=== PATIENT | male | born 1970 | race Caucasian/White ===

== ENCOUNTER 2021-12-23 15:42 | Outpatient (CLI) | payer OTHER, SELFPAY ==
--- NOTE | ~2021-12-23 | XR_ITS ---
EXAMINATION: XR abdomen/kub 1V DATE: 12/23/2021 16:06 INDICATION: Nephrolithiasis. Right flank pain. TECHNIQUE: A supine view of the abdomen on 2 radiographs was obtained. COMPARISON: None. FINDINGS: There are no dilated loops of bowel. There is an 8 mm calcification overlying left kidney t hat is likely a stone. There are calcifications in the pelvis. IMPRESSION: 1. 8 mm left kidney stone. 2. Calcifications in the pelvis, which may be phleboliths. Distal ureteral stone cannot be excluded. Reviewed, dictated and finalized at location A. IMPRESSION: 1. 8 mm left kidney stone. 2. Calcifications in the pelvis, which may be phleboliths. Distal ureteral ston e cannot be excluded.
== END 2021-12-23 15:43 | disposition home or self-care (01) ==
PROVIDERS: PCP Emergency Medicine
DX: N20.0 Calculus of kidney (principal)
CPT/HCPCS: 74018

== ENCOUNTER 2022-04-11 14:57 | Outpatient (CLI) | payer OTHER, SELFPAY ==
--- NOTE | 2022-04-11 15:00 | ECG_ITS ---
Measurements Intervals [place] Rate: 71 P: 40 CO: 176 QRS: 35 QRSD: 104 T: 29 QT: 390 QTc: 426 Interpretive Statements SINUS RHYTHM NORMAL ECG NO PREVIOUS ECG AVAILABLE FOR COMPARISON Electronically Signed On 04-11-2022 18:29:22 CDT by Khadar Batista M.D.
[2022-04-11 15:56] LABS: Anion Gap 9 mmol/L (8-16); Blood Urea Nitrogen 22 mg/dL (9-20); Calcium 9.4 mg/dL (8.4-10.2); Carbon Dioxide 26 mmol/L (22-30); Chloride 102 mmol/L (98-107); Estimated Glomerular Filt Rate > 60; Glucose 123 mg/dL (65-110); Potassium 3.4 mmol/L (3.4-5.0); Sodium 137 mmol/L (137-145)
[2022-04-11 15:57] LABS: INR 1.1; Prothrombin Time 13.4 Seconds (11.1-14.7)
[2022-04-11 15:58] LABS: Partial Thromboplastin Time 29.2 SECONDS (22.3-36.8)
== END 2022-04-11 14:58 | disposition home or self-care (01) ==
LOC: ANHSURGERY 15:10
PROVIDERS: Anesthesiology; Visit Provider Urology
DX: Z01.818 Encounter for other preprocedural examination (principal); N20.0 Calculus of kidney; E11.9 Type 2 diabetes mellitus without complications
CPT/HCPCS: 36415; 80048; 85610; 85730; 87086; 93005

== ENCOUNTER 2022-04-14 01:25 | Day surgery (SDC) | payer OTHER, SELFPAY ==
[2022-04-10 12:46] VITALS: BMI 26.9
--- NOTE | 2022-04-10 12:58 | PC.NURSE ---
Report to the Outpatient Waiting Room, entrance under the green pavilion located off [facility], at time 6:00 on date 04/14/22. OR Time: 7:30. - You and your visitor will be asked to self-screen and do not enter if you have any COVID symptoms. - Only one visitor and NO children visitors are allowed at this time. - The patient visitor is requested to leave or wait in car when not with patient due to restrictions. - A mask is required within the hospital. Patients may have clear liquids (water, carbonated beverages, clear teas, apple juice) until 3 hours prior to surgery (4:30) with a maximum of 20 ounces. - No food from midnight until time of surgery Take the following medications with a SIP of water the morning of surgery: NONE Medications to discontinue per physician: N/A Date to take last dose: N/A Please no make-up, nail turkish, hairspray, perfume, deodorant, or body powder the day of surgery. No jewelry (including any body piercings) or valuables the day of surgery, leave them at home. Please take a shower or bath the night before, or the morning of, surgery with an antibacterial soap. Wear comfortable, loose fitting clothing. - Jewelry must be removed prior to entering the operating room. Rings and piercings that are not removed may be cut off. - The hospital will not accept responsibility for valuables. - Please leave all valuables, including medications, at home the day of surgery. If you are going home after surgery, a licensed deliver driver must drive you home. - NO public transportation without another adult. - We recommend that an adult stay with you for 24 hours following discharge. - We also recommend that you do not drive, make important decision, drink alcoholic beverages, or take any drugs that were not prescribed by your health care provider for at least 24 hours after your discharge time. Follow any additional instructions given to you from your surgeon. If you or anyone in your household have experienced Covid symptoms in the past week, please notify your surgeon or the nurse liaison at the phone number below for possible testing. Telephone instructions given to PT - JALEN MOYA and asked if any additional questions and then verbalized understanding. Patient advised to call surgeon office or pre surgery nurse liaison [phone] if any additional questions.
--- NOTE | 2022-04-13 14:47 | P.PNAN_ITS ---
Anes - Initial Pre Proc Eval Procedure: Operation Date: 04/14/22 07:30 Proposed Procedures p Left Renal Extracorporeal Shock Wave Lithotripsy - Henry Quan MD Date/Time: 04/13/22 14:47 Surgeon: Henry Quan MD Pre Op Diagnosis: left renal stone Patient Data Age: 51 Gender: M Height: 1.74 m Weight: 81.65 kg Allergies Allergy/AdvReac Type Severity Reaction Status Date / Time No Known Allergies Allergy Unverified 04/14/22 06:43 Home Medications Medication Instructions Recorded Confirmed Type atorvastatin 40 mg tablet 40 mg PO HS 04/10/22 04/14/22 History metformin 500 mg tablet,extended 1,000 mg PO HS 04/10/22 04/14/22 History release 24 hr Patient hx anesthesia problems: none Family hx anesthesia problems: none Results Review: All pre-operative results and documents have been reviewed as part of the pre- operative evaluation. [facility] Past Medical History Medical History (Updated 04/13/22 @ 14:49 by Andrew Liu MD) Anxiety Diabetes History of gout Hyperlipidemia FARIDA (obstructive sleep apnea) Osteoarthritis of right knee Subacromial impingement of right shoulder Family History Family History Grandparent Malignant neoplasm of prostate, Onset Age: 63 Cerebrovascular accident Mother Family history of migraine headaches Patient's mother is in good health Family history of allergic disorder Family history of coronary artery disease Family history of malignant neoplasm of breast in first degree relative, Onset Age: 60 Father Family history of diabetes mellitus in first degree relative Social History Social History Smoking packs per day: 1 Smoking cigarettes per day: 20.0 Years smoked: 20 Smoking pack-years: 20.00 Smoking status: Former smoker Tobacco type: cigarettes Smoking end date: 08/20/03 Alcohol intake: never Substance use: never Substance use type: does not use Living arrangements: with family Additional living arrangements comments: Daughter and . Additional occupation/education comments: [employer] Spiritual care concerns: No Anes - Eval Final PreProcedure Day of Procedure 04/13/22 14:47 Patient weight: overweight Heart: regular rate and rhythm Lungs: clear to auscultation and normal air movement Airway: Mallampati scale class II Neurological: alert and oriented Last oral intake: >/= 8 hours ASA classification: III Emergent: no Anesthetic plan: proceed Anesthesia type and monitoring: general LMA Results Review: All pre-operative results and documents have been reviewed as part of the pre- operative evaluation. Informed Consent: The patient's anesthetic plan and its attendant risks and benefits were discussed with the patient/family/POA. Questions were solicited and answers provided to the satisfaction of the patient/family/POA.
[2022-04-14] VITALS (7 sets, daily range): BP systolic 104–134; BP diastolic 60–91; PULSE 60–72; RESP 14–20; TEMP 36.3–36.5; O2SAT 96–100
--- NOTE | ~2022-04-14 | XR_ITS ---
EXAMINATION: XR abdomen/kub 1V DATE: 04/14/2022 06:11 INDICATION: Kidney stone. TECHNIQUE: A supine view of the abdomen on 3 radiographs was obtained. COMPARISON: Abdomen radiographs 12/23/2021 FINDINGS: There are no dilated loops of bowel. There is a moderate volume of stool in the colon. Calc ifications in the pelvis may be phleboliths. There is a 6 mm stone in left kidney. IMPRESSION: 1. 6 mm stone in left kidney. Reviewed, dictated and finalized at location A.
[2022-04-14] MEDS: LACTATED RINGERS 1,000 ML 30 ML IV CONT ×2 (06:38→08:07)
[2022-04-14 06:41] LABS: Glucose Point of Care 107 mg/dl (65-105)
--- NOTE | 2022-04-14 06:58 | WPDHPUPDATE1 ---
History and Physical Update Update Date/Time: 04/14/22 06:58 History and Physical has been reviewed, including an updated exam of the patient. There are NO changes in the patient's condition. Risks, benefits, and alternatives have been discussed and questions answered. Patient agrees to proceed with procedure.
[2022-04-14] MEDS: ceFAZolin 2 GM/D5W 50 ML 2 GM/50 ML BAG IVPB (07:25)
--- NOTE | 2022-04-14 07:51 | W.PM.PROC2 ---
Procedure Note - Detailed Date of Procedure 04/14/22 Pre-op Diagnosis Left renal stone Post-op Diagnosis Same Procedure Performed Left ESWL Surgeon Henry Quan MD Description of Procedure The patient was brought to the operative suite where he was placed in the supine position on the Dornier lithotripsy table. The focal point of the lithotripter was placed at a 8mm left mid-pole renal calculus. A total of 2500 shocks were delivered at a power setting of 4. There appeared to be good fragmentation of the stone. The patient tolerated the procedure well and was taken to the recovery room in good condition. Drains No Packing No Pathology None sent Complications No immediate complications Condition Stable
[2022-04-14 08:27] LABS: Glucose Point of Care 107 mg/dl (65-105)
[2022-04-14] MEDS: oxyCODONE HCL (*CRX) 5 MG TAB IR PO (08:55)
== END 2022-04-14 09:50 | disposition home or self-care (01) ==
PROVIDERS: Visit Provider Urology
PROC: (CPT 50590; principal; 2022-04-14 07:30)
DX: N20.0 Calculus of kidney (principal); F41.9 Anxiety disorder, unspecified; G47.33 Obstructive sleep apnea (adult) (pediatric); M19.90 Unspecified osteoarthritis, unspecified site; E78.5 Hyperlipidemia, unspecified; Z87.891 Personal history of nicotine dependence; Z79.84 Long term (current) use of oral hypoglycemic drugs
CPT/HCPCS: 50590; 36415; 74018; 80048; 82948; 85610; 85730; 87086; 93005; A9270; J0690; J1100; J2250; J2405; J2704; J3010; J7120

== ENCOUNTER 2022-04-28 13:27 | Outpatient (CLI) | payer OTHER, SELFPAY ==
--- NOTE | ~2022-04-28 | XR_ITS ---
EXAMINATION: XR abdomen/kub 1V DATE: 04/28/2022 13:50 INDICATION: Lithotripsy 2 weeks prior TECHNIQUE: A supine view of the abdomen on 2 radiographs was obtained. COMPARISON: 04/14/2022 FINDINGS: Interval advancement of a still for-5 lumbar stones/stone fragment previously at the left kidney now projecting over the left sacroiliac and the distal left ureter. Unchanged pattern of phleboliths in t he more caudal pelvis. No dilated loops of gas-filled bowel to suggest obstruction. Bones are unremar kable. IMPRESSION: 1. Advanced into a 4-5 mm stones/stone fragment now at the distal left ureter. Reviewed, dictated and finalized at location A.
== END 2022-04-28 13:28 | disposition home or self-care (01) ==
PROVIDERS: Visit Provider Urology
DX: N20.0 Calculus of kidney (principal); N20.1 Calculus of ureter
CPT/HCPCS: 74018

== ENCOUNTER 2022-07-19 14:44 | Outpatient (CLI) | payer OTHER, SELFPAY ==
--- NOTE | ~2022-07-19 | US_ITS ---
. EXAMINATION: US retroperitoneal comp DATE: 07/19/2022 16:17 INDICATION: Acute renal insufficiency. TECHNIQUE: Multiple ultrasound grayscale images of the kidneys were obtained. COMPARISON: Ultrasound kidneys 09/14/2010 FINDINGS: The right kidney measures 14.2 x 5.1 x 5.8 cm. The left kidney measures 15.3 x 5.4 x 7.0 cm. The kidn eys demonstrate normal parenchymal echogenicity. There is no hydronephrosis. The bladder is normal. IMPRESSION: 1. Normal kidneys. No hydronephrosis. Reviewed, dictated and finalized at location A. SCOPE REPAIRER
== END 2022-07-19 14:45 | disposition home or self-care (01) ==
DX: N28.9 Disorder of kidney and ureter, unspecified (principal); N20.0 Calculus of kidney
CPT/HCPCS: 76770

== ENCOUNTER 2023-07-17 14:39 | Outpatient (CLI) | payer OTHER, SELFPAY ==
--- NOTE | 2023-07-17 14:49 | ECG_ITS ---
Measurements Intervals [place] Rate: 79 P: 34 [place]: 176 QRS: 3 QRSD: 92 T: 30 QT: 370 QTc: 425 Interpretive Statements SINUS RHYTHM MINIMAL Q WAVES- INFERIOR LEADS BASELINE ARTIFACT- I, III, AVR, AVL, V2 BORDERLINE ECG COMPARED TO ECG 04/11/2022 15:31:25 NO SIGNIFICANT CHANGES Electronically Signed On 07-17-2023 16:26:17 READING AIDE by Kenney Masterson D.O.
== END 2023-07-17 14:40 | disposition home or self-care (01) ==
LOC: ANHSURGERY 14:41
PROVIDERS: Visit Provider Urology
DX: E78.5 Hyperlipidemia, unspecified (principal)
CPT/HCPCS: 93005

== ENCOUNTER 2023-07-19 01:38 | Day surgery (SDC) | payer OTHER, SELFPAY ==
[2023-07-10 15:34] VITALS: BMI 27.3
--- NOTE | 2023-07-10 15:41 | PC.NURSE ---
Report to the Outpatient Waiting Room, entrance under the green pavilion located off [facility], at time 11:30 on date 07/19/23. Planned Procedure Time: 1:30. Time changes happen often and if your time is changed the preop area will call you the afternoon before. - You and your visitor will be asked to self-screen and do not enter if you have any COVID symptoms. - A mask is optional within the hospital at this time. Patients may have clear liquids (water, carbonated beverages, clear teas, apple juice) until 3 hours prior to surgery (10:30) with a maximum of 20 ounces. - No food from midnight until time of surgery Take the following medications with a SIP of water the morning of surgery: PAIN PILL IF NEEDED DO NOT STOP ANY OF YOUR OTHER PRESCRIPTION MEDICATIONS PRIOR TO SURGERY ?EXCEPT THE FOLLOWING Medications to discontinue per physician: VITAMINS/SUPPLEMENTS Date to take last dose: 07/15/[address] HELTON REGARDING IBUPROFEN Please no make-up, nail korean, hairspray, perfume, deodorant, or body powder the day of surgery. No jewelry (including any body piercings) or valuables the day of surgery, leave them at home. Please take a shower or bath the night before, or the morning of, surgery with an antibacterial soap. Wear comfortable, loose fitting clothing. - Jewelry must be removed prior to entering the operating room. Rings and piercings that are not removed may be cut off. - The hospital will not accept responsibility for valuables. - Please leave all valuables, including medications, at home the day of surgery. If you are going home after surgery, a licensed motor pool driver must drive you home. - NO public transportation without another adult if you receive anesthesia. - We recommend that an adult stay with you for 24 hours following discharge. - We also recommend that you do not drive, make important decision, drink alcoholic beverages, or take any drugs that were not prescribed by your health care provider for at least 24 hours after your discharge time. Follow any additional instructions given to you from your surgeon. If you or anyone in your household have experienced Covid symptoms in the past week, please notify your surgeon or the nurse liaison at the phone number below for possible testing. Telephone instructions given to PT - JALEN MOYA and asked if any additional questions and then verbalized understanding. Patient advised to call surgeon office or pre surgery nurse liaison [phone] if any additional questions.
[2023-07-19] VITALS (7 sets, daily range): BP systolic 98–148; BP diastolic 71–94; PULSE 67–93; RESP 12–18; TEMP 36.4; O2SAT 94–99; BMI 28.5
--- NOTE | ~2023-07-19 | CT_ITS ---
EXAMINATION: CT abdomen pelvis wo con DATE: 07/19/2023 10:26 INDICATION: Left ureteral stone. TECHNIQUE: Computed tomography (CT) of the abdomen and pelvis was performed without intravenous contr ast. Automated exposure control and iterative reconstruction technique were employed. The dose-length product was 223.49 mGy-cm. COMPARISON: None. FINDINGS: The visualized portions of the lung bases demonstrate a 7 mm nodule in right middle lobe. N o pleural effusion. The heart size is normal. No pericardial effusion. The liver, gallbladder, spleen , pancreas, adrenal glands, and right kidney are normal. There is a 3 mm stone in left kidney upper p ole. 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 There is a 6 mm stone at left uretero vesicular junction. There is mild hydronephrosis involving left kidney lower pole. The prostate is mi ldly enlarged. There are no dilated loops of bowel. The appendix is normal. There are no pathological ly enlarged lymph nodes. There is no free intraperitoneal fluid. There is mild lumbar spondylosis. IMPRESSION: 1. 6 mm stone at left ureterovesicular junction. 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 2. 3 mm nonobstructing stone in left kidney upper pole. 3. 7 mm pulmonary nodule, probably benign. Noncontrast low-dose chest CT is recommended in 6 months. Reviewed, dictated and finalized at location A. GOODS TESTER IMPRESSION: 1. 6 mm stone at left ureterovesicular junction. 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 2. 3 mm nonobstructing stone in left kidney upper pole. 3. 7 mm pulmonary nodule, probably benign. Noncontrast low-dose chest CT is rec ommended in 6 months.
--- NOTE | ~2023-07-19 | XR_ITS ---
EXAMINATION: XR stent kub - surgery DATE: 07/19/2023 11:34 INDICATION: Left internal ureteral stent placement TECHNIQUE: Fluoroscopic images from a left internal ureteral stent placement are submitted for review . 30 seconds of fluoroscopy time. FINDINGS: There is a left double-J internal ureteral stent projecting in expected position, with proximal [place] loop at the level of the renal pelvis and distal loop in the pelvis within the bladder lumen. IMPRESSION: 1. Left internal ureteral stent placement. Please refer to real-time procedural findings for detail s. Reviewed, dictated and finalized at location L. ESS SAFETY SPECIALIST IMPRESSION: 1. Left internal ureteral stent placement. Please refer to real-time procedur al findings for details.
--- NOTE | 2023-07-19 06:30 | WPDHPUPDATE1 ---
History and Physical Update Update Date/Time: 07/19/23 06:30 History and Physical has been reviewed, including an updated exam of the patient. There are NO changes in the patient's condition. Risks, benefits, and alternatives have been discussed and questions answered. Patient agrees to proceed with procedure.
--- NOTE | 2023-07-19 10:45 | WPDANESEPPF ---
Anes - Initial Pre Proc Eval Procedure: Operation Date: 07/19/23 11:30 Proposed Procedures p Cystoscopy, Left Ureteroscopy, Left Stone Extraction, Holmium Laser Lithotripsy, Possible Left Retrograde Pyelogram, Possible Left Stent Placement - Henry Quan MD Date/Time: 07/19/23 10:45 Surgeon: Henry Quan MD Pre Op Diagnosis: Lft Ureteral Stone Patient Data Age: 53 Gender: M Height: 1.75 m Weight: 84 kg Allergies Allergy/AdvReac Type Severity Reaction Status Date / Time No Known Allergies Allergy Unverified 07/10/23 15:31 Home Medications Medication Instructions Recorded Confirmed Type atorvastatin 40 mg tablet 40 mg PO HS 04/10/22 07/10/23 History hydrocodone 5 mg-acetaminophen 325 1 tablet PO Q6H PRN Pain 07/10/23 07/10/23 History mg tablet ibuprofen 600 mg tablet 600 mg PO QID PRN Pain 07/10/23 07/10/23 History omega 6-cad-zqq-fish oil 1,000 mg 1 cap PO DAILY 07/10/23 07/10/23 History (120 mg-180 mg) capsule (Fish Oil) sulfamethoxazole 800 1 tablet PO BID 07/10/23 07/10/23 History mg-trimethoprim 160 mg tablet tamsulosin 0.4 mg capsule (Flomax) 0.4 mg PO HS 07/10/23 07/10/23 History Patient hx anesthesia problems: none Family hx anesthesia problems: none Results Review: All pre-operative results and documents have been reviewed as part of the pre-operative evaluation. [facility] Past Medical History Medical History Anxiety Diabetes History of gout Hyperlipidemia FARIDA (obstructive sleep apnea) Osteoarthritis of right knee Subacromial impingement of right shoulder Family History Family History Grandparent Malignant neoplasm of prostate, Onset Age: 63 Cerebrovascular accident Mother Family history of migraine headaches Patient's mother is in good health Family history of allergic disorder Family history of coronary artery disease Family history of malignant neoplasm of breast in first degree relative, Onset Age: 60 Father Family history of diabetes mellitus in first degree relative Social History Social History Smoking packs per day: 1 Smoking cigarettes per day: 20.0 Years smoked: 25 Smoking pack-years: 25.00 Smoking status: Former smoker Tobacco type: cigarettes Smoking end date: 08/20/01 Alcohol intake: never Substance use: never Substance use type: does not use Living arrangements: with family Additional living arrangements comments: Daughter and . Occupation/Education: occupation Additional occupation/education comments: [employer] Gender identity (if verbalized by the patient): Male Sexual Orientation (if Verbalized by the Patient): Straight or Heterosexual Spiritual care concerns: No Anes - Eval Final PreProcedure Day of Procedure 07/19/23 10:45 Patient weight: overweight Heart: regular rate and rhythm Lungs: decreased breath sounds Airway: Mallampati scale class II Neurological: alert and oriented Last oral intake: >/= 8 hours ASA classification: III Emergent: no Anesthetic plan: proceed Anesthesia type and monitoring: general LMA and standard monitoring Results Review: All pre-operative results and documents have been reviewed as part of the pre-operative evaluation. Informed Consent: The patient's anesthetic plan and its attendant risks and benefits were discussed with the patient/family/POA. Questions were solicited and answers provided to the satisfaction of the patient/family/POA.
[2023-07-19] MEDS: LACTATED RINGERS 1,000 ML 30 ML IV CONT (10:50)
[2023-07-19] MEDS: ceFAZolin 2 GM/D5W 50 ML 2 GM/50 ML BAG IVPB (10:57)
--- NOTE | 2023-07-19 11:36 | W.PM.PROC2 ---
Procedure Note - Detailed Date of Procedure 07/19/23 Pre-op Diagnosis Left Ureteral Stone Post-op Diagnosis Same Procedure Performed Cystoscopy, left ureteroscopy with laser lithotripsy, stone extraction and stent placement Surgeon Henry Quan MD Anesthesia General Description of Procedure The patient was brought to the operative suite where he is prepped and draped in a routine sterile fashion while in the dorsal lithotomy position after the uneventful induction of a general LMA anesthetic. A 19F rigid cystoscope was placed in the bladder. There are no urethral strictures. His prostatic urethra measures, approximately 1.5cm with no median lobe enlargement. The bladder mucosa was endoscopically normal without hyperemia or neoplasm. There was a single, orthotopic ureteral orifice bilaterally. A 0.035 glidewire was advanced into the left renal pelvis under fluoroscopy. The distal ureter was dilated with an 8F/10F ureteral dilator. Ureteroscopy was undertaken with a short tapered semi-rigid ureteroscope. I found a fairly large, 7 mm stone impacted in his intramural portion of the distal left ureter. During ureteroscopy I fractured the stone into smaller pieces using a 273 micron Holmium laser fiber with the Holmium laser. I was able to then extract the stone pieces using a 1.9F Escape, disposable stone basket. Due to the extent of this manipulation I did place a 4.8F double-J ureteral stent. The proximal coil of the stent was confirmed to be in the renal pelvis and the distal coil in the bladder. The patient's bladder was emptied and he was taken to the recovery room having tolerated this procedure well. Drains No Packing No Pathology Yes Complications No immediate complications Condition Stable
== END 2023-07-19 12:56 | disposition home or self-care (01) ==
PROVIDERS: Visit Provider Urology
PROC: (CPT 52352; principal; 2023-07-19 11:30)
DX: N20.1 Calculus of ureter (principal); E11.9 Type 2 diabetes mellitus without complications; E78.5 Hyperlipidemia, unspecified; G47.33 Obstructive sleep apnea (adult) (pediatric); Z87.891 Personal history of nicotine dependence
CPT/HCPCS: 52356; 74176; 82365; 88300; C1769; C2617; J0690; J1100; J2405; J2704; J7120; Q9966

== ENCOUNTER 2023-10-11 13:48 | Outpatient (RCR) | payer OTHER, SELFPAY ==
[2023-10-11 14:37] VITALS: BMI 29.4
[2023-10-11 14:38] VITALS: BMI 29.4
== END 2024-01-09 23:59 | disposition home or self-care (01) ==
LOC: ANHDMC 13:48
DX: E11.9 Type 2 diabetes mellitus without complications (principal); M10.9 Gout, unspecified; N20.0 Calculus of kidney; Z71.3 Dietary counseling and surveillance
CPT/HCPCS: 97802